=== PATIENT | male | born 1995 | race Caucasian/White ===

== ENCOUNTER 2017-03-20 02:14 | Emergency (ER) | payer OTHER ==
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
[2017-03-20] MEDS ORDERED: CEPHALEXIN MONOHYDRATE 500 MG CAPSULE (UD) PO ONE (02:53)
[2017-03-20] MEDS ORDERED: TETANUS AND DIPHTHERIA TOXOID 0.5 ML DISP.SYRIN IM ONE (02:53)
[2017-03-20] MEDS ORDERED: CEPHALEXIN MONOHYDRATE 250 MG CAPSULE (FP) ONE ×2 (03:27→03:31)
[2017-03-20] MEDS ORDERED: LIDOCAINE HCL/PF 1% SDV 5ML VIAL ONE (03:36)
[2017-03-20 05:21] VITALS: BP 135/79; PULSE 89; TEMP 98.2; BMI 25.0
== END 2017-03-20 04:30 | disposition home or self-care (01) ==
LOC: JER 02:14
PROC: 0HQGXZZ Repair Left Hand Skin, External Approach (ICD-10-PCS; principal; 2017-03-20)
DX: S61.412A Laceration without foreign body of left hand, initial encounter (principal); Y35.813A Legal intervention involving manhandling, suspect injured, initial encounter; X58.XXXA Exposure to other specified factors, initial encounter; Y93.89 Activity, other specified; Y92.008 Other place in unspecified non-institutional (private) residence as the place of occurrence of the external cause
CPT/HCPCS: 12001-25; 99282-25